=== PATIENT | male | born 1990 | race Caucasian/White ===

== ENCOUNTER 2016-08-23 23:31 | Emergency (ER) | payer BC ==
--- NOTE | 2016-08-24 00:42 | ER Document Report ---
ED Medical Screen (RME) - General Stated Complaint: POSSIBLE INFECTION ON LEG Time seen by provider: 00:39 Mode of Arrival: Ambulatory Information source: Patient Notes: 25-year-old male presents to ED as directed by his machine joiner cementer for a possible cellulitis to the right leg after injecting testosterone himself. Patient was seen by urgent care on August 19 after he showed up testosterone AUGUST 18 that he got on the streets. He was seen by his machine joiner cementer this afternoon and he wrote on a prescription that the patient was to come to the emergency room and be examined and treated. I have greeted and performed a rapid initial assessment of this patient. A comprehensive ED assessment and evaluation of the patient, analysis of test results and completion of medical decision making process will be conducted by an additional ED providers. - Related Data Allergies/Adverse Reactions: No Known Allergies Allergy (Unverified 08/24/16 00:39) Physical Exam - Vital signs Vitals: Temp Pulse Resp BP Pulse Ox 97.9 F 86 18 139/64 H 99 08/24/16 00:21 08/24/16 00:21 08/24/16 00:21 08/24/16 00:21 08/24/16 00:21 Course - Vital Signs Vital signs: Temp Pulse Resp BP Pulse Ox 97.9 F 86 18 139/64 H 99 08/24/16 00:21 08/24/16 00:21 08/24/16 00:21 08/24/16 00:21 08/24/16 00:21
[2016-08-24 01:35] LABS: ABSOLUTE EOSINOPHILS # (AUTO) 0.2 10^3/uL (0.0-0.6); ABSOLUTE LYMPHOCYTES (AUTO) 2.4 10^3/uL (0.5-4.7); ABSOLUTE MONOCYTES (AUTO) 0.8 10^3/uL (0.1-1.4); ABSOLUTE NEUT (AUTO) 4.9 10^3/uL (1.7-8.2); BASOPHILS % (AUTO) 0.5 % (0-2); EOSINOPHILS % (AUTO) 2.5 % (0-6); HEMATOCRIT 46.9 % (37.9-51.0); HEMOGLOBIN 15.8 g/dL (13.5-17.0); HGB HCT DIFFERENCE 0.5; LYMPHOCYTES % (AUTO) 29.1 % (13-45); MEAN CORPUSCULAR HEMOGLOBIN 30.5 pg (27.0-33.4); MEAN CORPUSCULAR HGB CONC 33.6 g/dL (32.0-36.0); MEAN CORPUSCULAR VOLUME 91 fl (80-97); MONOCYTES % (AUTO) 9.3 % (3-13); RED BLOOD COUNT 5.16 10^6/uL (4.35-5.55); RED CELL DISTRIBUTION WIDTH 13.2 % (11.5-14.0); SEGMENTED NEUTROPHILS % (AUTO) 58.6 % (42-78); WHITE BLOOD COUNT 8.3 10^3/uL (4.0-10.5)
[2016-08-24 01:48] LABS: ALANINE AMINOTRANSFERASE 39 U/L (21-72); ALBUMIN 4.4 g/dL (3.5-5.0); ALKALINE PHOSPHATASE 62 U/L (38-126); ANION GAP 14 (5-19); ASPARTATE AMINO TRANSFERASE 28 U/L (17-59); BILIRUBIN,TOTAL 0.5 mg/dL (0.2-1.3); BLOOD UREA NITROGEN 13 mg/dL (7-20); CALCIUM 9.8 mg/dL (8.4-10.2); CARBON DIOXIDE 25 mmol/L (22-30); CHLORIDE 103 mmol/L (98-107); GLUCOSE 96 mg/dL (75-110); POTASSIUM 4.7 mmol/L (3.6-5.0); SODIUM 141.9 mmol/L (137-145); TOTAL PROTEIN 7.3 g/dL (6.3-8.2)
--- NOTE | 2016-08-24 08:14 | ER Document Report ---
HPI - HPI Pain Level: 2 Context: Patient is a 25-year-old male presents to the emergency department after referral from his cattle knocker. Patient states he has been doing I am testosterone injections in his right butt cheek and right thigh a couple months. Patient states that his last IM injection of testosterone was every 15. Patient states that he then had skin reddening and pain of the right thigh. Patient states that he went to urgent care on August 21 and was started on Cefzil and told to follow up with his primary care provider. Patient saw his cattle knocker on the and was referred over for evaluation for DVT. Patient admits to past medical history significant for hypertension otherwise does not have a primary care provider - CARDIOVASCULAR Cardiovascular: DENIES: Chest pain - DERM Skin Color: Normal Past Medical History - General Information source: Patient - Social History Smoking Status: Unknown if Ever Smoked Family History: Reviewed & Not Pertinent Patient has suicidal ideation: No Patient has homicidal ideation: No Renal/ Medical History: Denies: Hx Peritoneal Dialysis Surgical Hx: Negative - Immunizations Hx Diphtheria, Pertussis, Tetanus Vaccination: Yes Vertical Provider Document - CONSTITUTIONAL Agree With Documented VS: Yes Exam Limitations: No Limitations General Appearance: WD/WN, No Apparent Distress - INFECTION CONTROL TRAVEL OUTSIDE OF THE [place] IN LAST 30 DAYS: No - HEENT HEENT: Atraumatic, Normocephalic - RESPIRATORY Respiratory: Breath Sounds Normal, No Respiratory Distress, Chest Non-Tender. negative: Rales, Rhonchi, Wheezing O2 Sat by Pulse Oximetry: 100 - CARDIOVASCULAR Cardiovascular: Regular Rate, Regular Rhythm, No Murmur Pulses: Normal: Radial, Dorsalis pedis Notes: Capillary refill less than 2 seconds in all lower extremity digits. - MUSCULOSKELETAL/EXTREMETIES Musculoskeletal/Extremeties: MAEW, FROM, Non-Tender, No Edema Notes: No evidence of lower extremity edema, cellulitis, inflammation, abscess. - NEURO Level of Consciousness: Awake, Alert, Appropriate Motor/Sensory: No Motor Deficit, No Sensory Deficit - DERM Integumentary: Warm, Dry, No Rash. negative: Rash, Abscess Notes: No evidence of cellulitis. Course - Re-evaluation Re-evalutation: 08/24/16 09:33 Patient is a 25-year-old male presents emergency department after referral from cattle knocker for evaluation for cellulitis and possible DVT. Patient has a negative Homans, no calf tenderness, no lower extremity swelling. wells criteria= 0. This time no further workup is necessary for DVT. Can instruct him to continue taking his antibiotics as prescribed and follow up with his primary care provider in the next 7 days - Vital Signs Vital signs: Temp Pulse Resp BP Pulse Ox 96.4 F L 77 15 134/74 H 100 08/24/16 06:10 08/24/16 06:10 08/24/16 06:10 08/24/16 06:10 08/24/16 06:10 - Laboratory Result Diagrams: 08/24/16 01:16 08/24/16 01:16 Discharge - Discharge Clinical Impression: Cellulitis Qualifiers: Site of cellulitis: extremity Site of cellulitis of extremity: lower extremity Laterality: right Qualified Code(s): L03.115 - Cellulitis of right lower limb Condition: Good Disposition: HOME, SELF-CARE Additional Instructions: CELLULITIS: You have an infection of your skin and underlying soft tissues called cellulitis. This is due to bacteria, which can enter through any break in the skin, or even through an irritated hair follicle. Untreated, cellulitis will usually worsen. Antibiotics are required. Usually, warm packs or warm soaks, and elevation of the infected area are recommended. You should start getting better within 24 to 36 hours. Most infections respond quickly to the right medication. Follow-up care is important, however, to check for abscess (boil) formation, unsuspected foreign body, or resistant infection. If you develop fever, chills, or if the area of infection is becoming rapidly more swollen or painful, call the doctor at once. ANTIBIOTIC THERAPY: You have been given an antibiotic prescription. It's important that you take all the medication, unless instructed otherwise by your physician. Failure to complete the entire course can result in relapse of your condition. Common side effects of antibiotics include nausea, intestinal cramping, or diarrhea. Women may develop vaginal yeast infections, and babies can get yeast (thrush) in the mouth following the use of antibiotics. Contact your physician if you develop significant side effects from this medication. Allergy to this antibiotic can result in hives, wheezing, faintness, or itching. If symptoms of allergy occur, stop the medication and call the doctor. FOLLOW-UP CARE: If you have been referred to a physician for follow-up care, call the physician s office for an appointment as you were instructed or within the next two days. If you experience worsening or a significant change in your symptoms, notify the physician immediately or return to the Emergency Department at any time for re-evaluation. Please continue to take your medications as prescribed. Follow up with your primary care physician in 7 days Forms: Elevated Blood Pressure
[2016-08-24 08:26] VITALS: BP 135/57
== END 2016-08-24 08:24 | disposition home or self-care (01) ==
LOC: ER 23:31
DX: L03.115 Cellulitis of right lower limb (principal); I10 Essential (primary) hypertension; Z79.899 Other long term (current) drug therapy
CPT/HCPCS: 36415; 80053; 85025; 87040; 99283